=== PATIENT | female | born 1985 ===

== ENCOUNTER 2017-10-22 05:49 | Emergency (ER) | payer SELFPAY ==
[2017-10-22 06:05] VITALS: BP 123/87; PULSE 70; RESP 20; O2SAT 97
--- NOTE | 2017-10-22 06:16 | C.PDOC ---
History Of Present Illness 32 yo female come in for evaluation of Right lower toothache gradually developed for past 2 days. Since last night, gradually developed Right lower facial swelling. Otherwise, pt denies fever, chills, known trauma or injury, headache, dizziness, drooling, trismus, dyspnea, SOB, denies recent dental work. Ambulate to ED for evaluation, not in any apparent distress. Time Seen by Provider: 10/22/17 05:51 Chief Complaint (Nursing): ENT Problem History Per: Patient Onset/Duration Of Symptoms: Gradual Past Medical History Reviewed: Historical Data, Nursing Documentation, Vital Signs Vital Signs: Last Vital Signs Temp Pulse 70 10/22/17 05:59 Resp 20 10/22/17 05:59 BP 123/87 10/22/17 05:59 Pulse Ox 97 10/22/17 06:32 - Medical History PMH: No Chronic Diseases Family History: States: No Known Family Hx - Social History Hx Alcohol Use: No Hx Substance Use: No - Immunization History Hx Tetanus Toxoid Vaccination: No Hx Influenza Vaccination: No Review Of Systems Except As Marked, All Systems Reviewed And Found Negative. Constitutional: Negative for: Fever, Chills ENT: Positive for: Mouth Pain, Mouth Swelling. Negative for: Ear Discharge, Nose Congestion, Throat Swelling Cardiovascular: Negative for: Chest Pain Respiratory: Negative for: Cough, Shortness of Breath, Wheezing Gastrointestinal: Negative for: Nausea, Vomiting Musculoskeletal: Negative for: Neck Pain Skin: Negative for: Rash Neurological: Negative for: Altered Mental Status, Headache, Dizziness Physical Exam - Physical Exam Appears: Well, Non-toxic, No Acute Distress Skin: Normal Color, Warm, No Rash Head: Normacephalic Eye(s): bilateral: PERRL Ear(s): Bilateral: Normal Nose: Normal, No Flaring Oral Mucosa: Moist, No Drooling, No Trismus Tongue: Normal Appearing Lips: Normal Appearing Teeth: Caries (#30 with mild tenderness to percusion), Avulsed (#29 carious root ) Gingiva: Swelling (#29-30), Tender (#29-30), Abscess (#29-30) Throat: No Erythema, No Drooling, Other (uvula midline, no edema.) Neck: Trachea Midline Lymphatic: Adenopathy (Right submandibular, mild tender) Chest: Symmetrical Cardiovascular: Rhythm Regular, No Murmur Respiratory: No Decreased Breath Sounds, No Accessory Muscle Use, No Stridor, No Wheezing Extremity: No Deformity, No Swelling Neurological/Psych: Oriented x3, Normal Speech ED Course And Treatment O2 Sat by Pulse Oximetry: 97 Pulse Ox Interpretation: Normal Progress Note: On re-evaluaion, pt is afberile, hemodynamicaly stable. NOn- toxic. Tolerate Po well in ED. No drooling, no trismus. PlusEOx 97%RA. ENT: exam c/w smitha tooth abscess #29-30, mild Right lower facial edema, no erythema or flactulance. newck: Supple, (-) meningeal sign. Lungs: CTA B/L, BS equal B/ L. Neurologicaly intact. Pt advised on course of ds. ref. to F/u with Dentist in 2-3 days for re-evaluation. return to ED if any worsening or new changes. Disposition Counseled Patient/Family Regarding: Diagnosis, Need For Followup, Rx Given - Disposition Referrals: [facility] [Provider Group] [facility] [Provider Group] Disposition: HOME/ ROUTINE Disposition Time: 06:23 Condition: STABLE Additional Instructions: Warm salty water tooth baths 2-3 times daily for 5 minutes take medication as prescribed Follow up with dentist in 2-3 days for re-evaluation. return to ED if any worsening or new changes. Prescriptions: Clindamycin [Cleocin] 300 mg PO Q6 #28 cap traMADol [Ultram] 50 mg PO TID #10 tab Instructions: Tooth Abscess (DC) Forms: [employer] (Malagasy) - Clinical Impression Clinical Impression: Tooth abscess
== END 2017-10-22 06:50 | disposition home or self-care (01) ==
LOC: C.ER 05:49
DX: K04.7 Periapical abscess without sinus (principal)